=== PATIENT | male | born 1995 | race Caucasian/White ===

== ENCOUNTER 2017-05-09 01:27 | Emergency (ER) | payer OTHER ==
[~2017-05-09] VITALS: Ht 177.8 cm; Wt 81.7 kg
[~2017-05-09 01:27] MED LIST: HYDROCODONE-AP1 EAC6; PHENERGAN 25 MG25 M1 PO
[2017-05-09 03:31] LABS: URINE BILIRUBIN NEGATIVE (Negative); URINE BLOOD 3+ (Negative); URINE CLARITY CLEAR; URINE COLOR YELLOW; URINE GLUCOSE-RANDOM NEGATIVE (Negative); URINE KETONES NEGATIVE (Negative); URINE LEUKOCYTES-REFLEX NEGATIVE (Negative); URINE NITRITE-REFLEX NEGATIVE (Negative); URINE PROTEIN NEGATIVE (Negative); URINE SPECIFIC GRAVITY 1.015 (1.005-1.030); URINE UROBILINOGEN 0.2 E.U./dl (0.2-1.0)
[2017-05-09 03:47] LABS: AMORPHOUS URATES Moderate /LPF (None Seen); BACTERIA-REFLEX 1-9 Few /HPF (None Seen); CASTS None Seen /LPF (None Seen); MUCUS 4-6 Moderate strn/LPF (None Seen); SQUAMOUS 0-3 Few /LPF (0-3); URINE RBC >20 Many /HPF (0-2); URINE WBC-REFLEX 0-5 Rare /HPF (0-5)
[2017-05-09] MEDS ORDERED: FLOMAX0.4 MG PO (03:58)
[2017-05-09] MEDS ORDERED: HYDROCODONE-AP1 EAC6 PO (03:58)
[2017-05-09 04:09] VITALS: BP 87/46
== END 2017-05-09 04:09 | disposition home or self-care (01) ==
LOC: M.ERS 01:27
PROVIDERS: Emergency Medicine
DX: N20.0 Calculus of kidney (principal); F17.220 Nicotine dependence, chewing tobacco, uncomplicated